=== PATIENT | male | born 1965 | race Caucasian/White ===

== ENCOUNTER 2025-04-29 11:55 | Outpatient (CLI) | payer MEDICARE, OTHER ==
[2025-04-29 12:52] LABS: Hematocrit 41.0 % (38.8-50.0); Hemoglobin 13.4 g/dL (13.5-17.5); Mean Corpuscular Hemoglobin 29.9 pg (27.0-33.0); Mean Corpuscular Volume 91.5 fL (81.2-95.1); Platelet Count 154 10x3/uL (150-450); Red Blood Cell (RBC) Count 4.48 10x6/uL (4.32-5.72); White Blood Cell (WBC) Count 6.59 10x3/uL (3.5-10.5)
[2025-04-29 13:13] LABS: Anion Gap 9 mmol/L (10-20); BUN (Urea Nitrogen) 13 mg/dL (8.4-25.7); Calc. Creatinine Clearance 0 mL/min (70-130); Calcium 8.7 mg/dL (7.8-10.44); Carbon Dioxide 28 mmol/L (23-31); Chloride 108 mmol/L (98-107); Glucose 108 mg/dL (80-115); Potassium 4.0 mmol/L (3.5-5.1); Sodium 141 mmol/L (136-145)
== END 2025-04-29 11:56 | disposition home or self-care (01) ==
LOC: CSHLAB 11:55
PROVIDERS: ATTEND Surgery
DX: Z01.818 Encounter for other preprocedural examination (principal); K80.20 Calculus of gallbladder without cholecystitis without obstruction
CPT/HCPCS: 80048; 85027; 93005; 93010

== ENCOUNTER 2025-05-09 05:52 | Day surgery (SDC) | payer MEDICARE, OTHER ==
[2025-04-29 12:30] VITALS: BMI 32.1
[2025-05-09] MEDS ORDERED: Bupivacaine HCl 0.5%/Epinephrine 1:200,000/PF 30 ml Vial ONE (07:23)
[2025-05-09] MEDS ORDERED: CEFAZOLIN 2 GM VIAL ONE (08:02)
[2025-05-09] MEDS ORDERED: PROPOFOL 40 ML ONE (08:05)
[2025-05-09] MEDS ORDERED: Lidocaine 1% (PF) 30 ML VIAL ONE (08:05)
[2025-05-09] MEDS ORDERED: Rocuronium Bromide 10 MG/ML (10ML VIAL) ONE (08:05)
[2025-05-09] MEDS ORDERED: Glycopyrrolate 0.2 MG/ML 5 ML SYRINGE ONE (09:12)
[2025-05-09] MEDS ORDERED: SUGAMMADEX SODIUM 200 MG/2 ML VIAL ONE (09:12)
[2025-05-09] MEDS ORDERED: HYDROcodone/Acetaminophen 5/325 mg Tablet ONE (10:18)
== END 2025-05-09 11:15 | disposition home or self-care (01) ==
LOC: CSHSDC 05:52
PROVIDERS: ATTEND Surgery
PROC: 0FT44ZZ Resection of Gallbladder, Percutaneous Endoscopic Approach (ICD-10-PCS; principal; 2025-05-09)
DX: K80.10 Calculus of gallbladder with chronic cholecystitis without obstruction (principal); I10 Essential (primary) hypertension; Z88.5 Allergy status to narcotic agent; Z87.891 Personal history of nicotine dependence; Z91.018 Allergy to other foods
CPT/HCPCS: 88304; C1889; J0461; J1100; J2003; J2704; J3010; S2900